=== PATIENT | female | born 2000 | race Caucasian/White ===

== ENCOUNTER 2020-12-01 16:25 | Outpatient (CLI) | payer BC, OTHER ==
[~2020-12-01 16:25] MED LIST: PRENATAL VITAM1 EAC5 PO
== END 2020-12-01 21:18 | disposition home or self-care (01) ==
LOC: GENOP 16:25
DX: O46.93 Antepartum hemorrhage, unspecified, third trimester (principal); O99.891 Other specified diseases and conditions complicating pregnancy; M54.5 Low back pain; O99.343 Other mental disorders complicating pregnancy, third trimester; F41.9 Anxiety disorder, unspecified; O99.013 Anemia complicating pregnancy, third trimester; D64.9 Anemia, unspecified; Z87.440 Personal history of urinary (tract) infections; Z88.0 Allergy status to penicillin; Z3A.36 36 weeks gestation of pregnancy
CPT/HCPCS: 81001; 83518; G0463